=== PATIENT | female | born 1945 | race Caucasian/White ===

== ENCOUNTER → 2016-06-22 | Outpatient (CLI) | payer OTHER ==
[~2016-06-22] MED LIST: DIAZ-165 PO; FAMO20TA11 PO; FURO-85 PO; GADAVIST IV PRN; VIT D
--- NOTE | 2016-06-22 11:48 | DIAGNOSTIC IMAGING REPORT ---
CERVICAL SPINE MRI WITH AND WITHOUT CONTRAST HISTORY: Neck pain. CERVICAL RADICULOPATHY, multiple sclerosis TECHNIQUE: Multiplanar multisequence MRI of the cervical spine was performed both before and after the use of intravenous contrast. COMPARISON STUDY: Outside hospital brain MRI 10/10/2015. FINDINGS: Mild motion artifact. The cerebellar tonsils are positioned 5 mm below the level the foramen magnum. There is mild mass effect along the cervicomedullary junction. This remains unchanged. Technically, this represents cerebellar tonsillar ectopia. Otherwise, the visualized posterior fossa is unremarkable. There is a 6 mm hemangioma at T3. The cervical spinal cord is normal in course, caliber, and signal intensity. No abnormal enhancement identified. No fractures within the cervical spine. Disc spaces are preserved. Prevertebral soft tissues and the C1-C2 interval are intact. No disc herniations. No significant central canal or neural foraminal narrowing. IMPRESSION: 1. The cervical spinal cord is within normal limits. 2. No disc herniations. No significant central canal or neural foraminal narrowing. 3. No change in the cerebellar tonsillar ectopia with mild mass effect at the cervicomedullary junction. Electronically signed by: Roberto Smart M.D. 06/22/2016 11:46 AM Dictated Date/Time: 06/22/2016 11:38 AM
== END | disposition home or self-care (01) ==
LOC: C.MRIBC 08:55
PROVIDERS: ATTEND Psychiatry & Neurology Neurology
DX: M54.12 Radiculopathy, cervical region (principal); G35 Multiple sclerosis

== ENCOUNTER → 2016-09-06 | Outpatient (CLI) | payer OTHER ==
[~2016-09-06] VITALS: Ht 144.8 cm; Wt 54.2 kg
[~2016-09-06] MED LIST changes: -GADAVIST IV PRN
[2016-09-06 15:22] VITALS: BP 129/62; PULSE 61; Ht 144.8 cm; Wt 54.2 kg
== END | disposition home or self-care (01) ==
LOC: C.NEUR 13:50
PROVIDERS: ATTEND Internal Medicine Pulmonary Disease
DX: G47.33 Obstructive sleep apnea (adult) (pediatric) (principal); L25.9 Unspecified contact dermatitis, unspecified cause

== ENCOUNTER → 2016-12-21 | Outpatient (CLI) | payer OTHER ==
[2016-12-21 17:58] LABS: BASO % 0.2 %; BASO ABS # 0.02 K/uL (0-0.2); COMPLETE YES; HEMATOCRIT 40.3 % (37-47); IG% 0.2 %; LYMPH ABS # 3.79 K/uL (1.2-3.4); MEAN CORPUSCULAR HEMOGLOBIN 30.5 pg (25-34); MEAN CORPUSCULAR HGB CONC 33.5 g/dl (32-36); MEAN PLATELET VOLUME 10.3 fL (7.4-10.4); MONO % 7.9 %; NEUT % 55.7 %; PLATELET COUNT 250 K/uL (130-400); RED BLOOD COUNT 4.43 M/uL (4.2-5.4); WHITE BLOOD COUNT 10.84 K/uL (4.8-10.8)
[2016-12-21 18:01] LABS: ALT/SGPT 16 U/L (12-78); AST/SGOT 19 U/L (15-37); BLOOD UREA NITROGEN 12 mg/dl (7-18); BUN/CREATININE RATIO 11.8 (10-20); CALCIUM 8.8 mg/dl (8.5-10.1); CARBON DIOXIDE 28 mmol/L (21-32); CHLORIDE 109 mmol/L (98-107); GLUCOSE 91 mg/dl (70-99); POTASSIUM 3.6 mmol/L (3.5-5.1); SODIUM 144 mmol/L (136-145)
[2016-12-21 18:03] LABS: ALKALINE PHOSPHATASE 102 U/L (45-117)
== END | disposition home or self-care (01) ==
LOC: C.LABMFLN 14:49
PROVIDERS: ATTEND Psychiatry & Neurology Neurology
DX: G35 Multiple sclerosis (principal); R20.0 Anesthesia of skin; E55.9 Vitamin D deficiency, unspecified

== ENCOUNTER → 2017-06-27 | Outpatient (CLI) | payer OTHER ==
[~2017-06-27] MED LIST changes: +GADAVIST IV PRN
--- NOTE | 2017-06-27 14:55 | DIAGNOSTIC IMAGING REPORT ---
THORACIC SPINE COMBO CLINICAL HISTORY: Multiple sclerosis. Numbness and tingling in hands and feet. COMPARISON STUDY: No previous studies for comparison. TECHNIQUE: Utilizing a 1.5 Trish magnet and dedicated coil, multiplanar, multi echo imaging of the thoracic spine was performed pre and post contrast administration. Injection of 4.5 cc of Gadavist IV was uneventful. FINDINGS: Alignment of the thoracic spine is anatomic. Vertebral body heights are maintained. No suspicious marrow replacement is present. Thoracic cord signal and caliber are normal. No intracanalicular mass or fluid collection is present. No disc herniation is noted. Central canal and neural foramen are patent. Paravertebral soft tissues are unremarkable. IMPRESSION: Unremarkable MRI of the thoracic spine. Normal thoracic cord signal and caliber. Electronically signed by: Evelio Cameron M.D. 06/27/2017 2:53 PM Dictated Date/Time: 06/27/2017 2:49 PM
== END | disposition home or self-care (01) ==
LOC: C.MRIBC 13:36
PROVIDERS: ATTEND Psychiatry & Neurology Neurology
DX: G35 Multiple sclerosis (principal); R20.0 Anesthesia of skin; R20.2 Paresthesia of skin; R26.89 Other abnormalities of gait and mobility

== ENCOUNTER → 2017-10-02 | Day surgery (SDC) | payer OTHER ==
[2017-09-29 16:20] VITALS: BMI 24.0
[~2017-10-02] VITALS: Ht 144.8 cm; Wt 50.9 kg
[~2017-10-02] MED LIST changes: +ALUMSUS2 PO; +ASPI-390 PO; +CYAN100020 PO; -DIAZ-165 PO; -FAMO20TA11 PO; -GADAVIST IV PRN; +LIDOCAINE HCL 2% 2 ML VIAL (20MG/ML) ONE; +PROPOFOL IV EMULSION 10 MG/ML 20 ML VIAL ONE; +SODIUM CHLORIDE 0.9% 500ML 500 ML IV ONE; -VIT D; +WHEAPOW13 PO
[2017-10-02 09:55] VITALS: Ht 144.8 cm; Wt 50.9 kg
--- NOTE | 2017-10-02 10:37 | Endo History and Physical ---
History & Physical Date of Service: October 02, 2017. Chief Complaint: mack placement Referring Physician: dr. he History of Present Illness EGD with MACK today Past Medical History Arthritis, Reflux, Cancer Past Surgical History Hx Cardiac Surgery: No Hx Internal Defibrillator: No Hx Pacemaker: No Hx Abdominal Surgery: Yes (HYSTER, EMILIE) Hx of Implantable Prosthesis: No Hx Post-Op Nausea and Vomiting: Yes Hx Cancer Surgery: No Hx Thoracic Surgery: No Hx Orthopedic: Yes (R/L RCR, BILT KNEE-MENISCUS REPAIR) Hx Urinary Tract Surgery: Yes (BLADDER X2) Family History Polyp, IBD Social History Smoking Status: Never Smoker Hx Substance Use: No Hx Alcohol Use: No Allergies Coded Allergies: Amoxicillin (Verified Allergy, Severe, VOMITING AND PASSING OUT, 10/02/17) Iodinated Diagnostic Agents (Verified Allergy, Severe, Rash/Throat and tongue swelling, 10/02/17) Baclofen (Verified Allergy, Mild, RASH, 10/02/17) Egg Yolk (Verified Allergy, Mild, GI SYMPTOMS, 10/02/17) Omeprazole (Verified Allergy, Mild, JOINT PAIN, 10/02/17) Silicon (Verified Allergy, Mild, HIVES, 10/02/17) Acetaminophen (Verified Allergy, Unknown, GI SYMPTOMS, 10/02/17) Dicyclomine (Verified Allergy, Unknown, TACHYCARDIA, 10/02/17) Fexofenadine (Verified Allergy, Unknown, HEADACHES, 10/02/17) Hydrocodone (Verified Allergy, Unknown, DIZZY, 10/02/17) Lansoprazole (Verified Allergy, Unknown, HEADACHE, 10/02/17) Morphine (Verified Allergy, Unknown, DIZZY, 10/02/17) Pantoprazole (Verified Allergy, Unknown, CRYING, 10/02/17) Ranitidine (Verified Allergy, Unknown, TACHYCARDIA, 10/02/17) Sucralfate (Verified Allergy, Unknown, HEADACHE, 10/02/17) Diazepam (Verified Adverse Reaction, Severe, Bradycardia/hypotension with IV formulation, 10/02/17) Tramadol (Verified Adverse Reaction, Severe, PASSED OUT,VOMITING, 10/02/17) Azithromycin (Verified Adverse Reaction, Intermediate, PROBLEMS WITH HER LIVER, 10/02/17) Codeine (Verified Adverse Reaction, Intermediate, VOMITING, PASSED OUT, 10/02/17) Guaifenesin (Verified Adverse Reaction, Intermediate, Passed out/vomiting , 10/02/17) Uncoded Allergies: GAVISCON (Allergy, Intermediate, severe headache d/t/ sacchrin, 10/02/17) ADHESIVE TAPE (Allergy, Mild, SKIN BLISTERING, 09/29/17) Current Medications Reported Home Medications Medications Dose Route/Sig Max Daily Dose Days Date Category Benefiber (Wheat Dextrin) 1 Pow Pow 1 Pkt PO DAILY 09/29/17 Reported Maalox Max Susp (Al Hydrox/Mg Hydrox/Simethicone) Susp 5 Ml PO QID PRN 09/29/17 Reported Excedrin Migraine (Qywmcct-Fvfwubkukbhir-Ubgcdfss) 1 Tab Tab 1 Tab PO DIRECTED PRN 09/29/17 Reported Vitamin B12 (Cyanocobalamin) 1,000 Mcg Tab 1 Tab PO DAILY 09/29/17 Reported Lasix (Furosemide) 20 Mg Tab 20 Mg PO PRN 06/04/14 Reported Vital Signs Weight (Kilograms): 50.91 Height (Feet): 4 Height (Inches): 9 Date Time Temp Pulse Resp B/P (MAP) Pulse Ox O2 Delivery O2 Flow Rate FiO2 10/02/17 10:22 36.7 59 20 143/70 (94) 98 Room Air Physical Exam General Appearance: WD/WN, no apparent distress Assessment and Plan EGD with MACK
--- NOTE | 2017-10-02 11:00 | Discharge Instructions ---
Endoscopy Patient Instructions Date / Procedure(s) Performed October 02, 2017. EGD Allergy Information Coded Allergies: Amoxicillin (Verified Allergy, Severe, VOMITING AND PASSING OUT, 10/02/17) Iodinated Diagnostic Agents (Verified Allergy, Severe, Rash/Throat and tongue swelling, 10/02/17) Baclofen (Verified Allergy, Mild, RASH, 10/02/17) Egg Yolk (Verified Allergy, Mild, GI SYMPTOMS, 10/02/17) Omeprazole (Verified Allergy, Mild, JOINT PAIN, 10/02/17) Silicon (Verified Allergy, Mild, HIVES, 10/02/17) Acetaminophen (Verified Allergy, Unknown, GI SYMPTOMS, 10/02/17) Dicyclomine (Verified Allergy, Unknown, TACHYCARDIA, 10/02/17) Fexofenadine (Verified Allergy, Unknown, HEADACHES, 10/02/17) Hydrocodone (Verified Allergy, Unknown, DIZZY, 10/02/17) Lansoprazole (Verified Allergy, Unknown, HEADACHE, 10/02/17) Morphine (Verified Allergy, Unknown, DIZZY, 10/02/17) Pantoprazole (Verified Allergy, Unknown, CRYING, 10/02/17) Ranitidine (Verified Allergy, Unknown, TACHYCARDIA, 10/02/17) Sucralfate (Verified Allergy, Unknown, HEADACHE, 10/02/17) Diazepam (Verified Adverse Reaction, Severe, Bradycardia/hypotension with IV formulation, 10/02/17) Tramadol (Verified Adverse Reaction, Severe, PASSED OUT,VOMITING, 10/02/17) Azithromycin (Verified Adverse Reaction, Intermediate, PROBLEMS WITH HER LIVER, 10/02/17) Codeine (Verified Adverse Reaction, Intermediate, VOMITING, PASSED OUT, 10/02/17) Guaifenesin (Verified Adverse Reaction, Intermediate, Passed out/vomiting , 10/02/17) Uncoded Allergies: GAVISCON (Allergy, Intermediate, severe headache d/t/ sacchrin, 10/02/17) ADHESIVE TAPE (Allergy, Mild, SKIN BLISTERING, 09/29/17) Discharge Date / Findings October 02, 2017. small hiatal hernia Medication Instructions Restart Stopped Medication(s): OK to resume home medications Provider Instructions Activity Restrictions - No exercising or heavy lifting for 24 hours. - Do not drink alcohol the day of the procedure. - Do not drive a car or operate machinery until the day after the procedure. - Do not make any important decisions or sign important papers in 24 hours after the procedure. Following Day: - Return to full activity which may include returning to work/school. Diet Start your diet with liquids and light foods (jello, soup, juice, toast). Then eat your usual diet if not nauseated. Treatment For Common After Affects For mild abdominal pain, bloating, or excessive gas: - Rest - Eat lightly - Lie on right side Follow-Up Information Follow-up with dr. he as scheduled Anesthesia Information What You Should Know You have had a procedure that required some medicine to reduce anxiety and discomfort. This treatment is called moderate sedation. After receiving the treatment, you may be sleepy, but you will be able to breathe on your own. The effects of the treatment may last for several hours. Follow these instructions along with Activity/Diet recommendations noted above: * Do NOT do anything where dizziness or clumsiness would be dangerous. * Rest quietly at home today, then you can be up and about tomorrow. * Have a responsible person stay with you the rest of today. * You may have had an I.V. today. If so, you may take the dressing off later today. Recommendations Call your doctor if: * Trouble breathing * Continuous vomiting for more than 24 hours * Temperature above 101 degrees * Severe abdominal pain or bloating * Pain not relieved by pain medicine ordered * There is increased drainage or redness from any incision * A large amount of rectal bleeding greater than 2-3 tablespoons. (If you had a polyp/s removed or have hemorrhoids, a small amount of blood - from the rectum is to be expected.) * You have any unanswered questions or concerns. IN THE EVENT OF A SERIOUS EMERGENCY, GO TO THE NEAREST EMERGENCY ROOM Your discharge instructions were prepared by provider Marika Short. Patient Instructions Signature Page Nguyen Duarte Patient (or Guardian) Signature/Date: I have read and understand the instructions given to me by my caregivers. Caregiver/RN/Doctor Signature/Date: The above-named patient and/or guardian has received patient instructions on this date. + Original Patient Signature Page (only) stays with chart. Please make copy for patient.
--- NOTE | 2017-10-02 11:25 | Anesthesiology Progress Note ---
Anesthesia Post Op Note Date & Time October 02, 2017 at 11:25 Vital Signs Vital Signs Past 12 Hours Date Time Temp Pulse Resp B/P (MAP) Pulse Ox O2 Delivery O2 Flow Rate FiO2 10/02/17 11:19 59 20 132/73 (92) 97 Room Air 10/02/17 11:04 62 20 106/61 (76) 97 Room Air 10/02/17 10:22 36.7 59 20 143/70 (94) 98 Room Air Notes Mental Status: alert / awake / arousable, participated in evaluation Pt Amnestic to Procedure: Yes Nausea / Vomiting: adequately controlled Pain: adequately controlled Airway Patency, RR, SpO2: stable & adequate BP & HR: stable & adequate Hydration State: stable & adequate Anesthetic Complications: no major complications apparent
[2017-10-02 11:34] VITALS: BP 127/82; PULSE 57; O2SAT 98
--- NOTE | 2017-10-02 15:46 | GI REPORT ---
Patient Name: Nguyen Duarte Procedure Date: 10/02/2017 10:28 AM Date of : 1945 Admit Type: Outpatient Age: 72 Gender: Female Attending MD: Marika Short DO Procedure: Upper GI endoscopy Providers: Marika Short DO Referring MD: Hank Hernandez M.d., Rowan Ames DO Indications: Heartburn, Chest pain (non cardiac) Medicines: Propofol per Anesthesia Complications: No immediate complications. Estimated blood loss: None. Estimated Blood Loss: Estimated blood loss: none. Procedure: Pre-Anesthesia Assessment: - Prior to the procedure, a History and Physical was performed, and patient medications, allergies and sensitivities were reviewed. The patient's tolerance of previous anesthesia was reviewed. - The risks and benefits of the procedure and the sedation options and risks were discussed with the patient. All questions were answered and informed consent was obtained. - Patient identification and proposed procedure were verified prior to the procedure by the physician and the nurse. The procedure was verified in the pre-procedure area in the procedure room. - Mental Status Examination: alert and oriented. Airway Examination: normal oropharyngeal airway and neck mobility. Respiratory Examination: clear to auscultation. CV Examination: normal. Abdominal Examination: bowel sounds present, abdomen soft and non-tender, no masses or organomegaly noted. - ASA Grade Assessment: II - A patient with mild systemic disease. After obtaining informed consent, the endoscope was passed under direct vision. Throughout the procedure, the patient's blood pressure, pulse, and oxygen saturations were monitored continuously. The scope was introduced through the mouth, and advanced to the second part of duodenum. The upper GI endoscopy was accomplished without difficulty. The patient tolerated the procedure well. Findings: The examined esophagus was normal. The SAMSON capsule with delivery system was introduced through the mouth and advanced into the esophagus, such that the SAMSON pH capsule was positioned 31 cm from the incisors, which was 6 cm proximal to the GE junction. Suction was applied to the well of the SAMSON pH capsule to suck in the adjacent mucosa of the esophagus using the external vacuum pump set at a minimum vacuum pressure of 550 mmHg for 60 seconds. The SAMSON pH capsule was then deployed by depressing the plunger on top of the handle to advance the locking pin into the mucosa, thereby attaching the capsule to the esophagus. The plunger was then rotated a quarter turn clockwise to release the capsule from the delivery system. The delivery system was then withdrawn. Endoscopy was utilized for probe placement and diagnostic evaluation. A small hiatal hernia was present. The examined duodenum was normal. Impression: - Normal esophagus. - Small hiatal hernia. - Normal examined duodenum. - The SAMSON pH capsule was positioned 31 cm from the incisors, which was 6 cm proximal to the GE junction. - No specimens collected. Recommendation: - Follow SAMSON instructions. (Study being done off all reflux medications as patient unable to tolerate PPI or H2RA secondary to various side effects. - Return to referring physician as previously scheduled. ) - Discharge patient to home. Marika Short D.O. Marika Short, 10/02/2017 11:04:10 AM This report has been signed electronically. Note Initiated On: 10/02/2017 10:28 AM Number of Addenda: 0 I attest to the content of the Intraoperative Record and orders documented therein, exceptions below {[id number]}
== END | disposition home or self-care (01) ==
LOC: C.GI 09:40
PROVIDERS: ATTEND Internal Medicine
DX: R12 Heartburn (principal); R07.89 Other chest pain; K44.9 Diaphragmatic hernia without obstruction or gangrene; M19.90 Unspecified osteoarthritis, unspecified site; F41.9 Anxiety disorder, unspecified; J45.909 Unspecified asthma, uncomplicated; Z90.710 Acquired absence of both cervix and uterus; Z83.71 Family history of colonic polyps; Z88.1 Allergy status to other antibiotic agents; Z91.041 Radiographic dye allergy status; Z88.6 Allergy status to analgesic agent; Z88.5 Allergy status to narcotic agent; Z90.49 Acquired absence of other specified parts of digestive tract

== ENCOUNTER → 2017-10-11 | Outpatient (CLI) | payer OTHER ==
[~2017-10-11] MED LIST changes: -LIDOCAINE HCL 2% 2 ML VIAL (20MG/ML) ONE; -PROPOFOL IV EMULSION 10 MG/ML 20 ML VIAL ONE; -SODIUM CHLORIDE 0.9% 500ML 500 ML IV ONE
--- NOTE | 2017-10-11 14:08 | DIAGNOSTIC IMAGING REPORT ---
NUCLEAR GASTRIC EMPTYING STUDY: CLINICAL HISTORY: DYSPHAGIA BLOATING COMPARISON STUDY: None TECHNIQUE: Following the oral administration of 1.1 mCi of technetium 99m sulfur colloid in egg sandwich and 8 ounces of water, static abdominal images are performed anteriorly and posteriorly at 0 minutes, 1 hour, 2 hours, and 4 hour time intervals. Gastric emptying was calculated utilizing the geometric mean method. FINDINGS: There is approximately 67 % gastric activity remaining at the 1 hour time interval, 41 % at the 2 hour time interval (normal is less than 60%), and 5 % remaining at the 4 hour time interval (normal is less than 10%). These findings are consistent with a normal study IMPRESSION: Findings are consistent with a normal study Electronically signed by: Faraz Najera M.D. 10/11/2017 2:06 PM Dictated Date/Time: 10/11/2017 2:06 PM
== END | disposition home or self-care (01) ==
LOC: C.NUCL 08:05
PROVIDERS: ATTEND Surgery
DX: R47.02 Dysphasia (principal)

== ENCOUNTER → 2017-12-19 | Outpatient (CLI) | payer OTHER ==
[2017-12-19 17:58] LABS: BASO % 0.4 %; BASO ABS # 0.04 K/uL (0-0.2); HEMOGLOBIN 13.5 g/dL (12.0-16.0); IG# 0.02 K/uL (0.00-0.02); LYMPH % 38.5 %; LYMPH ABS # 3.79 K/uL (1.2-3.4); MEAN CELL VOLUME 92.1 fL (80-100); MEAN CORPUSCULAR HEMOGLOBIN 30.3 pg (25-34); MEAN CORPUSCULAR HGB CONC 32.9 g/dl (32-36); MEAN PLATELET VOLUME 10.8 fL (7.4-10.4); MONO % 7.1 %; NEUT % 52.8 %; PLATELET COUNT 245 K/uL (130-400); RED CELL DISTRIBUTION WIDTH CV 13.4 % (11.5-14.5); RED CELL DISTRIBUTION WIDTH SD 44.9 fL (36.4-46.3); WHITE BLOOD COUNT 9.85 K/uL (4.8-10.8)
[2017-12-19 18:21] LABS: ALBUMIN 3.5 gm/dl (3.4-5.0); ALKALINE PHOSPHATASE 88 U/L (45-117); ALT/SGPT 16 U/L (12-78); AST/SGOT 12 U/L (15-37); BLOOD UREA NITROGEN 11 mg/dl (7-18); CALCIUM 8.8 mg/dl (8.5-10.1); CARBON DIOXIDE 28 mmol/L (21-32); CREATININE 0.92 mg/dl (0.60-1.20); GLUCOSE 85 mg/dl (70-99); POTASSIUM 4.1 mmol/L (3.5-5.1); SODIUM 143 mmol/L (136-145); TOTAL PROTEIN 6.6 gm/dl (6.4-8.2)
== END | disposition home or self-care (01) ==
LOC: C.LABMFLN 12:26
PROVIDERS: ATTEND Psychiatry & Neurology Neurology
DX: G35 Multiple sclerosis (principal); E55.9 Vitamin D deficiency, unspecified; R53.1 Weakness

== ENCOUNTER → 2018-01-18 | Outpatient (CLI) | payer OTHER | END | disposition home or self-care (01) | LOC: C.LABMFLN 14:00 | PROVIDERS: ATTEND Internal Medicine | DX: R10.9 Unspecified abdominal pain (principal) ==